=== PATIENT | male | born 1975 | race Two or more races ===

== ENCOUNTER 2023-04-12 10:16 | Emergency (ER) | payer OTHER ==
[~2023-04-12] VITALS: Ht 180.3 cm; Wt 90.7 kg
--- NOTE | 2023-04-12 10:48 | NUR ---
iv established. 20g R Hand
--- NOTE | 2023-04-12 10:48 | NUR ---
blood sample collected and sent to lab
[2023-04-12 11:16] LABS: BASOPHILS # (AUTO) 0.1 K/uL (0.0-0.2); BASOPHILS % (AUTO) 1.2 % (0.0-2.0); EOSINOPHILS % (AUTO) 4.3 % (0.0-6.0); HEMATOCRIT 40 % (39-51); LYMPHOCYTES # (AUTO) 2.4 K/uL (0.8-4.8); MEAN CORPUSCULAR HGB CONC 35 g/dl (31.0-36.0); MEAN CORPUSCULAR VOLUME 86 fL (80-96); MONOCYTES # (AUTO) 0.4 K/uL (0.1-1.30); MONOCYTES % (AUTO) 7.6 % (2.0-12.0); NEUTROPHILS # (AUTO) 2.4 K/uL (1.8-8.9); NEUTROPHILS % (AUTO) 42.9 % (43.0-81.0); PLATELET COUNT (AUTO) 215 K/uL (150-450); RED BLOOD CELL COUNT(AUTO) 4.62 MIL/uL (4.5-6.0); WHITE BLOOD COUNT (AUTO) 5.5 K/uL (4.3-11.0)
[2023-04-12 11:19] LABS: CALCIUM, SERUM 8.9 mg/dL (8.5-10.1); POTASSIUM 4.3 mmol/L (3.5-5.1)
[2023-04-12 11:25] LABS: ALBUMIN 3.6 g/dL (3.4-5.0); BILIRUBIN,DIRECT 0.1 mg/dL (0.0-0.2); BILIRUBIN,TOTAL 0.5 mg/dL (0.2-1.0); TOTAL PROTEIN, SERUM 7.3 g/dL (6.4-8.2)
[2023-04-12] MEDS ORDERED: ONDANSETRON HCL/PF - ER 4 MG/2 ML VIAL IV ONE (11:30)
[2023-04-12] MEDS ORDERED: PANTOPRAZOLE 40 MG VIAL IV ONE (11:30)
[2023-04-12] MEDS ORDERED: ONDANSETRON HCL/PF 4 MG/2 ML VIAL ONE (11:30)
[2023-04-12] MEDS ORDERED: IV NS 0.9% 1,000 ML IV ONE (11:30)
[2023-04-12] MEDS ORDERED: PANTOPRAZOLE 40 MG VIAL ONE (11:30)
[2023-04-12] MEDS ORDERED: CT SWABBABLE VALVE TRANS SET 1 EA INFUS.SET MC ONE (11:54)
[2023-04-12] MEDS ORDERED: IV NS 0.9% 250 ML IV ONE (11:55)
--- NOTE | 2023-04-12 12:00 | NUR ---
PATIENT TAKEN TO CT VIA [facility]
--- NOTE | 2023-04-12 12:35 | NUR ---
FECAL, OCCULT BLOOD SAMPLE COLLECTED AND SENT TO LAB
--- NOTE | 2023-04-12 12:55 | NUR ---
urine sample collected and sent to lab
[2023-04-12 13:25] LABS: BILIRUBIN,URINE NEGATIVE (NEGATIVE); COLOR,URINE YELLOW (YELLOW); LEUKOCYTE ESTERASE ,URINE NEGATIVE (NEGATIVE); NITRITE, URINE NEGATIVE (NEGATIVE); PROTEIN,URINE NEGATIVE (NEGATIVE); UGLUCOSE NEGATIVE (NEGATIVE); UROBILINOGEN,URINE 0.2 EU/dL (0.2)
[2023-04-12 13:31] LABS: OCCULT BLOOD STOOL POSITIVE (NEGATIVE)
[2023-04-12 13:50] LABS: BACTERIA,URINE None seen /HPF (None Seen); RBC,URINE 0-2 /HPF (0-2); SQUAMOUS EPITHELIAL CELL,UR Rare /HPF (None Seen); WBC,URINE NONE SEEN /HPF (0-3)
[2023-04-12] MEDS ORDERED: OMEP20CA15 PO (14:26)
[2023-04-12 15:13] VITALS: BP 112/75
== END 2023-04-12 15:19 | disposition home or self-care (01) ==
LOC: ER 10:22
DX: K92.2 Gastrointestinal hemorrhage, unspecified (principal); R10.9 Unspecified abdominal pain; E11.9 Type 2 diabetes mellitus without complications; E78.00 Pure hypercholesterolemia, unspecified; Z98.890 Other specified postprocedural states; Z79.899 Other long term (current) drug therapy
CPT/HCPCS: 99285; 74177; 96374; 96361; 96375; 85025; 80048; 83690; 80076; 82272; 81001; 36415; J2405 ×2; J7030; J7050; C9113

== ENCOUNTER 2023-08-29 16:09 | Emergency (ER) | payer OTHER ==
[~2023-08-29] VITALS: Ht 180.3 cm; Wt 87.1 kg
[~2023-08-29 16:09] MED LIST: OMEP20CA15 PO
[2023-08-29 17:02] LABS: BASOPHILS # (AUTO) 0.1 K/uL (0.0-0.2); BASOPHILS % (AUTO) 0.8 % (0.0-2.0); EOSINOPHILS # (AUTO) 0.3 K/uL (0.0-0.7); EOSINOPHILS % (AUTO) 3.6 % (0.0-6.0); HEMATOCRIT 41 % (39-51); HEMOGLOBIN 14.2 g/dL (13.5-17.5); LYMPHOCYTES # (AUTO) 2.3 K/uL (0.8-4.8); LYMPHOCYTES % (AUTO) 30.1 % (20.0-44.0); MEAN CORPUSCULAR HEMOGLOBIN 31 PG (26.0-33.0); MEAN CORPUSCULAR HGB CONC 35 g/dl (31.0-36.0); MEAN CORPUSCULAR VOLUME 88 fL (80-96); MONOCYTES # (AUTO) 0.5 K/uL (0.1-1.30); MONOCYTES % (AUTO) 6.9 % (2.0-12.0); NEUTROPHILS # (AUTO) 4.5 K/uL (1.8-8.9); NEUTROPHILS % (AUTO) 58.6 % (43.0-81.0); PLATELET COUNT (AUTO) 231 K/uL (150-450); RED BLOOD CELL COUNT(AUTO) 4.65 MIL/uL (4.5-6.0); RED CELL DISTRIBUTION WIDTH 13.5 % (11.5-15.0); WHITE BLOOD COUNT (AUTO) 7.8 K/uL (4.3-11.0)
[2023-08-29 17:13] LABS: CALCIUM, SERUM 9.2 mg/dL (8.5-10.1); CARBON DIOXIDE 27 mmol/L (21-32); CHLORIDE 104 mmol/L (98-107); GLUCOSE 107 mg/dL (74-106); POTASSIUM 3.9 mmol/L (3.5-5.1); SODIUM SERUM 141 mmol/L (136-145); UREA NITROGEN, BLOOD 17 mg/dL (7-18)
[2023-08-29 18:31] VITALS: BP 127/55; TEMP 98.6; O2SAT 99
== END 2023-08-29 18:32 | disposition home or self-care (01) ==
LOC: ER 16:25
DX: R07.9 Chest pain, unspecified (principal); J45.909 Unspecified asthma, uncomplicated; F31.9 Bipolar disorder, unspecified; Z90.89 Acquired absence of other organs
CPT/HCPCS: 36415; 71045-TC; 80048-TC; 84484-TC; 85025-TC

== ENCOUNTER 2024-01-22 11:26 | Emergency (ER) | payer OTHER ==
[~2024-01-22] VITALS: Ht 180.3 cm; Wt 89.8 kg
[2024-01-22 12:11] LABS: CALCIUM, SERUM 8.8 mg/dL (8.5-10.1); CARBON DIOXIDE 24 mmol/L (21-32); CHLORIDE 103 mmol/L (98-107); CREATININE 1.1 mg/dL (0.6-1.3); GLUCOSE 161 mg/dL (74-106); POTASSIUM 3.9 mmol/L (3.5-5.1); SODIUM SERUM 138 mmol/L (136-145); UREA NITROGEN, BLOOD 13 mg/dL (7-18)
[2024-01-22 12:21] LABS: BASOPHILS # (AUTO) 0.1 K/uL (0.0-0.2); BASOPHILS % (AUTO) 1.1 % (0.0-2.0); EOSINOPHILS # (AUTO) 0.2 K/uL (0.0-0.7); EOSINOPHILS % (AUTO) 2.9 % (0.0-6.0); HEMATOCRIT 38 % (39-51); HEMOGLOBIN 13.5 g/dL (13.5-17.5); LYMPHOCYTES # (AUTO) 2.3 K/uL (0.8-4.8); LYMPHOCYTES % (AUTO) 39.6 % (20.0-44.0); MEAN CORPUSCULAR HEMOGLOBIN 31 PG (26.0-33.0); MEAN CORPUSCULAR HGB CONC 35 g/dl (31.0-36.0); MEAN CORPUSCULAR VOLUME 87 fL (80-96); MONOCYTES # (AUTO) 0.4 K/uL (0.1-1.30); MONOCYTES % (AUTO) 6.7 % (2.0-12.0); NEUTROPHILS # (AUTO) 2.9 K/uL (1.8-8.9); NEUTROPHILS % (AUTO) 49.7 % (43.0-81.0); PLATELET COUNT (AUTO) 241 K/uL (150-450); RED BLOOD CELL COUNT(AUTO) 4.42 MIL/uL (4.5-6.0); RED CELL DISTRIBUTION WIDTH 13.2 % (11.5-15.0); WHITE BLOOD COUNT (AUTO) 5.7 K/uL (4.3-11.0)
[2024-01-22] MEDS: IV NS 0.9% 1,000 ML BAG IV ONE (14:28)
[2024-01-22 16:07] VITALS: BP 118/78; TEMP 98.3; O2SAT 100
[2024-01-23] MEDS ORDERED: MECL-159 PO (03:41)
== END 2024-01-22 16:24 | disposition home or self-care (01) ==
LOC: ER 11:34
DX: R07.89 Other chest pain (principal); R00.2 Palpitations; R55 Syncope and collapse; E78.5 Hyperlipidemia, unspecified; J45.909 Unspecified asthma, uncomplicated; K21.9 Gastro-esophageal reflux disease without esophagitis; Z90.89 Acquired absence of other organs
CPT/HCPCS: 99285; 96360; 71045; 93005 ×2; 85025; 80048; 36415; 84443; 84484 ×2; J7030

== ENCOUNTER 2024-01-23 00:21 | Emergency (ER) | payer OTHER ==
[~2024-01-23] VITALS: Ht 180.3 cm; Wt 89.8 kg
[2024-01-23 02:20] VITALS: TEMP 97.8
[2024-01-23] MEDS ORDERED: MECLIZINE HCL 25 MG TABLET ONE (02:56)
[2024-01-23] MEDS: MECLIZINE HCL 25 MG TABLET PO ONE (02:59)
[2024-01-23 03:02] LABS: BASOPHILS % (AUTO) 0.7 % (0.0-2.0); EOSINOPHILS # (AUTO) 0.2 K/uL (0.0-0.7); EOSINOPHILS % (AUTO) 3.5 % (0.0-6.0); HEMATOCRIT 37 % (39-51); HEMOGLOBIN 12.9 g/dL (13.5-17.5); LYMPHOCYTES # (AUTO) 2.5 K/uL (0.8-4.8); LYMPHOCYTES % (AUTO) 43.9 % (20.0-44.0); MEAN CORPUSCULAR HEMOGLOBIN 31 PG (26.0-33.0); MEAN CORPUSCULAR HGB CONC 34 g/dl (31.0-36.0); MEAN CORPUSCULAR VOLUME 89 fL (80-96); MONOCYTES # (AUTO) 0.5 K/uL (0.1-1.30); MONOCYTES % (AUTO) 8.9 % (2.0-12.0); NEUTROPHILS # (AUTO) 2.5 K/uL (1.8-8.9); PLATELET COUNT (AUTO) 202 K/uL (150-450); RED BLOOD CELL COUNT(AUTO) 4.21 MIL/uL (4.5-6.0); RED CELL DISTRIBUTION WIDTH 13.4 % (11.5-15.0); WHITE BLOOD COUNT (AUTO) 5.8 K/uL (4.3-11.0)
[2024-01-23 03:17] LABS: CALCIUM, SERUM 8.8 mg/dL (8.5-10.1); POTASSIUM 3.8 mmol/L (3.5-5.1)
[2024-01-23 03:30] LABS: ALBUMIN 3.4 g/dL (3.4-5.0); BILIRUBIN,TOTAL 0.3 mg/dL (0.2-1.0)
[2024-01-23] MEDS ORDERED: MECL-159 PO (03:41)
[2024-01-23 04:31] VITALS: BP 118/78; O2SAT 99
== END 2024-01-23 04:31 | disposition home or self-care (01) ==
LOC: ER 00:24
DX: R42 Dizziness and giddiness (principal); E11.9 Type 2 diabetes mellitus without complications; J45.909 Unspecified asthma, uncomplicated; Z90.89 Acquired absence of other organs
CPT/HCPCS: 99283; 71045; 93005; 85025; 80048; 80076; 36415; 84484; 83880; J8597